=== PATIENT | male | born 1945 | race Caucasian/White ===

== ENCOUNTER 2018-04-05 10:58 | Emergency (ER) | payer BC, MEDICARE ==
--- NOTE | 2018-04-05 11:36 | ER Document Report ---
ED Fall - General Mode of Arrival: Ambulatory Information source: Patient TRAVEL OUTSIDE OF THE [place] IN LAST 30 DAYS: No <ESTELA DENNIS - Last Filed: 04/05/18 12:15> <FELISA BLANCHARD - Last Filed: 04/05/18 15:02> - General Chief Complaint: Fall Injury Stated Complaint: FALL Time Seen by Provider: 04/05/18 11:21 Notes: 72-year-old male who presents to the emergency department today with complaints of a fall that occurred this morning. Patient states it was dark outside as he was leaving for work, he tripped over some bricks in his driveway, and landed on concrete. Patient states he landed on his left side. Patient states he has left hip pain, pain in the posterior right thigh, and hematuria. Patient states he was able to get up and ambulate back inside with pain. Patient states he laid down for about an hour and when he woke up he urinated. Patient states this urine was all blood. Patient states his pain has steadily been increasing since the fall. Patient does take a baby aspirin a day. (ESTELA DENNIS) - Related data Allergies/Adverse Reactions: meperidine HCl [From Demerol] Allergy (Verified 04/05/18 11:11) Past Medical History - General Information source: Patient - Social History Smoking Status: Unknown if Ever Smoked Frequency of alcohol use: None Drug Abuse: None Lives with: Family Family History: CAD, DM Patient has suicidal ideation: No Patient has homicidal ideation: No - Past Medical History Cardiac Medical History: Reports: Hx Hypercholesterolemia, Hx Hypertension Renal/ Medical History: Denies: Hx Peritoneal Dialysis GI Medical History: Reports: Hx Gastroesophageal Reflux Disease Past Surgical History: Reports: Hx Abdominal Surgery - Hiatal hernia repair, Hx Appendectomy, Hx Cardiac Catheterization - 02/20/14, aortic valve, Hx Orthopedic Surgery - LEFT HIP REPLACE. - Immunizations Hx Diphtheria, Pertussis, Tetanus Vaccination: Yes <ESTELA DENNIS - Last Filed: 04/05/18 12:15> Review of Systems - Review of Systems Constitutional: No symptoms reported EENT: No symptoms reported Cardiovascular: No symptoms reported Respiratory: No symptoms reported Gastrointestinal: See HPI, Abdominal pain - left sided Genitourinary: See HPI, Flank pain - left, Hematuria Male Genitourinary: No symptoms reported Musculoskeletal: See HPI, Joint pain - left hip Skin: No symptoms reported Hematologic/Lymphatic: No symptoms reported Neurological/Psychological: No symptoms reported -: Yes All other systems reviewed and negative <ESTELA DENNIS - Last Filed: 04/05/18 12:15> Physical Exam <ESTELA DENNIS - Last Filed: 04/05/18 12:15> <FELISA BLANCHARD - Last Filed: 04/05/18 15:02> - Vital signs Vitals: Temp Pulse BP Pulse Ox 98.0 F 76 146/80 H 97 04/05/18 11:04 04/05/18 11:04 04/05/18 11:04 04/05/18 11:04 - Notes Notes: Physical Exam: General: Alert, appears uncomfortable. HEENT: Normocephalic. Atraumatic. PERRL. Extraocular movements intact. Oropharynx clear. Neck: Supple. Non-tender. Respiratory: No respiratory distress. Clear and equal breath sounds bilaterally. Cardiovascular: Regular rate and rhythm. Abdominal: Left lower quadrant tenderness with palpation. No distension. Normal Bowel Sounds. Back: Left flank tenderness with palpation. No deformity or step off. Extremities: Moves all four extremities. Upper extremities: Normal inspection. Normal ROM. Lower extremities: Some tenderness with palpation over the right posterior hamstring musculature region. Moderate tenderness with palpation of left hip. Neurological: Normal cognition. AAOx4. Normal speech. Psychological: Normal affect. Normal Mood. Skin: Warm. Dry. Normal color. (ESTELA DENNIS) Course - Laboratory Result Diagrams: 04/05/18 12:40 04/05/18 12:40 - Diagnostic Test Radiology reviewed: Image reviewed, Reports reviewed - CT scan is unremarkable. <FELISA BLANCHARD - Last Filed: 04/05/18 15:02> - Vital Signs Vital signs: Temp Pulse Resp BP Pulse Ox 98.0 F 76 146/80 H 97 04/05/18 11:04 04/05/18 11:04 04/05/18 11:04 04/05/18 11:04 - Laboratory Laboratory results interpreted by me: 04/05/18 11:33 Urine Protein 100 H Urine Blood LARGE H Discharge <ESTELA DENNIS - Last Filed: 04/05/18 12:15> <FELISA BLANCHARD - Last Filed: 04/05/18 15:02> - Discharge Clinical Impression: Contusion of left hip region Fall Qualifiers: Encounter type: initial encounter Qualified Code(s): W19.XXXA - Unspecified fall, initial encounter Contusion of flank and back Qualifiers: Encounter type: initial encounter Qualified Code(s): S30.1XXA - Contusion of abdominal wall, initial encounter Renal contusion Qualifiers: Encounter type: initial encounter Laterality: left Qualified Code(s): S37.012A - Minor contusion of left kidney, initial encounter Condition: Stable Disposition: HOME, SELF-CARE Additional Instructions: Contusion: Your injury has resulted in a contusion -- a crushing of the deep tissues. No injury to important structures was detected during the physician's exam. Contusions vary in the amount of pain they cause, and in the length of time required for healing. Typically, the area will become bruised, and will remain painful to touch for two or three weeks. However, most patients are back to working and playing within a few days. After the initial period of rest and cold-packs, your symptoms (together with the doctor's recommendations) will determine how rapidly you can get back to full activity. Usually this means "do what feels okay, but don't do things that hurt." If re-examination was recommended, it's important to follow up as instructed. Call the doctor or return any time if pain increases, if swelling becomes severe, if you develop numbness or weakness in an injured extremity, or if any other alarming symptoms occur. The x-ray does not show any problems with your left hip hardware. There are no signs of fractures in the surrounding bones. The CT scan does not show any abnormalities in your abdomen or pelvis. The blood in the urine suggest you had a contusion to your left kidney. The physical exam shows that you had a contusion to the left hip and left flank region. You should drink plenty of fluids for the next few days to keep your urine diluted. Follow-up with your doctor Sunday for recheck if not improving. RETURN TO THE EMERGENCY ROOM IF ANY NEW OR WORSENING SYMPTOMS. Prescriptions: Oxycodone HCl/Acetaminophen [Percocet 5-325 mg Tablet] 1 - 2 tab PO ASDIR PRN # 15 tablet PRN Reason: Referrals: NI GOMES MD [Primary Care Provider] - Follow up as needed Scribe Attestation: 04/05/18 13:05 I personally performed the services described in the documentation, reviewed and edited the documentation which was dictated to the scribe in my presence, and it accurately records my words and actions. (FELISA BLANCHARD) Scribe Documentation - Scribe Written by Artemioe:: Santy Zhu, 04/05/2018 1221 acting as scribe for :: Crystal <ESTELA DENNIS - Last Filed: 04/05/18 12:15>
[2018-04-05] MEDS ORDERED: ONDANSETRON HCL INJ/PF 4 MG/2 ML SDV IV ONE (11:48)
[2018-04-05] MEDS ORDERED: MORPHINE SULFATE 10 MG/ML INJ IV ONE (11:48)
--- NOTE | 2018-04-05 12:17 | RADIOLOGY REPORT (SQ) ---
EXAM DESCRIPTION: HIP LEFT AP/LATERAL COMPLETED DATE/TIME: 04/05/2018 12:05 pm REASON FOR STUDY: Fall, left hip pain, prosthetic hip COMPARISON: 11/09/2015. NUMBER OF VIEWS: Two views. TECHNIQUE: AP pelvis and additional frog-leg view of the left hip. LIMITATIONS: None. FINDINGS: MINERALIZATION: Normal. LEFT HIP: Stable prosthesis. No fracture or dislocation. No worrisome bone lesions. RIGHT HIP: No fracture or dislocation. Degenerative changes. No worrisome bone lesions. PUBIS AND ISCHIUM: No fracture. PELVIS: No fracture. SACRUM: No fracture or dislocation. No worrisome bone lesions. LOWER LUMBAR SPINE: No fracture or dislocation. No worrisome bone lesions. Degenerative disc disease . SOFT TISSUES: No findings. OTHER: No other significant finding. IMPRESSION: STABLE LEFT HIP PROSTHESIS. DEGENERATIVE CHANGES IN THE RIGHT HIP AND LOWER LUMBAR SPIN E. NO ACUTE FINDINGS. TECHNICAL DOCUMENTATION: JOB ID: [id number] [employer]- All Rights Reserved Reading location - IP/workstation name: [facility]
[2018-04-05 12:18] LABS: APPEARANCE,URINE CLOUDY; BILIRUBIN,URINE NEGATIVE (NEGATIVE); GLUCOSE, URINE NEGATIVE (NEGATIVE); KETONES,URINE NEGATIVE (NEGATIVE); LEUKOCYTE ESTERASE,URINE NEGATIVE (NEGATIVE); NITRITE,URINE NEGATIVE (NEGATIVE); PROTEIN,URINE 100 mg/dL (NEGATIVE); URINE SPECIFIC GRAVITY 1.016; UROBILINOGEN,URINE NEGATIVE mg/dL (<2.0)
[2018-04-05 12:19] LABS: COLOR,URINE BROWN
[2018-04-05 12:58] LABS: ABSOLUTE BASOPHILS # (AUTO) 0.1 10^3/uL (0.0-0.2); ABSOLUTE EOSINOPHILS # (AUTO) 0.2 10^3/uL (0.0-0.6); ABSOLUTE LYMPHOCYTES (AUTO) 1.7 10^3/uL (0.5-4.7); ABSOLUTE MONOCYTES (AUTO) 0.8 10^3/uL (0.1-1.4); ABSOLUTE NEUT (AUTO) 6.6 10^3/uL (1.7-8.2); BASOPHILS % (AUTO) 0.8 % (0-2); EOSINOPHILS % (AUTO) 2.4 % (0-6); HEMATOCRIT 40.5 % (37.9-51.0); HEMOGLOBIN 13.9 g/dL (13.5-17.0); LYMPHOCYTES % (AUTO) 18.4 % (13-45); MEAN CORPUSCULAR HEMOGLOBIN 30.7 pg (27.0-33.4); MEAN CORPUSCULAR HGB CONC 34.3 g/dL (32.0-36.0); MEAN CORPUSCULAR VOLUME 89 fl (80-97); MONOCYTES % (AUTO) 8.2 % (3-13); PLATELET COUNT 170 10^3/uL (150-450); RED BLOOD COUNT 4.53 10^6/uL (4.35-5.55); RED CELL DISTRIBUTION WIDTH 13.7 % (11.5-14.0); SEGMENTED NEUTROPHILS % (AUTO) 70.2 % (42-78); TOTAL CELLS COUNTED % (AUTO) 100 %; WHITE BLOOD COUNT 9.5 10^3/uL (4.0-10.5)
[2018-04-05 13:24] LABS: ALANINE AMINOTRANSFERASE 24 U/L (21-72); ALBUMIN 3.6 g/dL (3.5-5.0); ALKALINE PHOSPHATASE 75 U/L (38-126); ANION GAP 8 (5-19); ASPARTATE AMINO TRANSFERASE 27 U/L (17-59); BILIRUBIN,DIRECT 0.2 mg/dL (0.0-0.4); BILIRUBIN,TOTAL 1.2 mg/dL (0.2-1.3); BLOOD UREA NITROGEN 15 mg/dL (7-20); CALCIUM 9.1 mg/dL (8.4-10.2); CARBON DIOXIDE 30 mmol/L (22-30); CHLORIDE 106 mmol/L (98-107); CREATINE KINASE 56 U/L (55-170); GLUCOSE 91 mg/dL (75-110); POTASSIUM 4.3 mmol/L (3.6-5.0); SODIUM 143.9 mmol/L (137-145); TOTAL PROTEIN 6.5 g/dL (6.3-8.2)
--- NOTE | 2018-04-05 14:09 | RADIOLOGY REPORT (SQ) ---
EXAM DESCRIPTION: CT ABD/PELVIS WITH IV ONLY COMPLETED DATE/TIME: 04/05/2018 1:57 pm REASON FOR STUDY: Fall, L flank pain, hematuria COMPARISON: None. TECHNIQUE: CT scan of the abdomen and pelvis performed using helical scanning technique with dynamic intravenous contrast injection. No oral contrast. Images reviewed with lung, soft tissue, and bone windows. Reconstructed coronal and sagittal MPR images reviewed. Delayed images for evaluation of the urinary system also acquired. All images stored on PACS. All CT scanners at this facility use dose modulation, iterative reconstruction, and/or weight based d osing when appropriate to reduce radiation dose to as low as reasonably achievable (ALARA). [facility]: Dose Right [facility]: CareDose [facility]: Dose Right [facility]: Teradose 4D [facility]: [employer] CONTRAST TYPE AND DOSE: contrast/concentration: Isovue 350.00 mg/ml; Total Contrast Delivered: 100.0 ml; Total Saline Delivered: 72.0 ml RENAL FUNCTION: BUN 15, creatinine 1.03 RADIATION DOSE: CT Rad equipment meets quality standard of care and radiation dose reduction techniq ues were employed. CTDIvol: 10.9 - 15.1 mGy. DLP: 1545 mGy-cm.. LIMITATIONS: None. FINDINGS: LOWER CHEST: No significant findings. No nodules or infiltrates. LIVER: Normal size. No masses. No dilated ducts. SPLEEN: Normal size. No focal lesions. PANCREAS: No masses. No significant calcifications. No adjacent inflammation or peripancreatic fluid collections. Pancreatic duct not dilated. GALLBLADDER: No identified stones by CT criteria. No inflammatory changes to suggest cholecystitis. ADRENAL GLANDS: No significant masses or asymmetry. RIGHT KIDNEY AND URETER: No solid masses. No significant calcifications. No hydronephrosis or hyd roureter. LEFT KIDNEY AND URETER: No solid masses. No significant calcifications. No hydronephrosis or hydr oureter. AORTA AND VESSELS: No aneurysm. No dissection. Renal arteries, SMA, celiac without stenosis. RETROPERITONEUM: No retroperitoneal adenopathy, hemorrhage or masses. BOWEL AND PERITONEAL CAVITY: No masses or inflammatory changes. No free fluid or peritoneal masses. APPENDIX: Normal. PELVIS: No mass. No free fluid. Normal bladder. ABDOMINAL WALL: No masses. No hernias. BONES: There are postsurgical changes in the left hip. No acute fracture or dislocation. OTHER: No other significant finding. IMPRESSION: NO SIGNIFICANT OR ACUTE FINDING IN THE ABDOMEN OR PELVIS ON CT SCAN WITH IV CONTRAST. TECHNICAL DOCUMENTATION: JOB ID: [id number] Quality ID # [id number]: Final reports with documentation of one or more dose reduction techniques (e.g., Au tomated exposure control, adjustment of the mA and/or kV according to patient size, use of iterative reconstruction technique) 2010 [employer]- All Rights Reserved Reading location - IP/workstation name: [email or web address]
[2018-04-05] MEDS ORDERED: OXYCODONE-ACETAMINOPHEN 5-325 MG TABLET PO ONE (15:01)
[2018-04-05 15:19] VITALS: BP 131/82
== END 2018-04-05 15:23 | disposition home or self-care (01) ==
LOC: ER 10:58
DX: S70.02XA Contusion of left hip, initial encounter (principal); M25.552 Pain in left hip; M79.652 Pain in left thigh; R31.9 Hematuria, unspecified; W01.198A Fall on same level from slipping, tripping and stumbling with subsequent striking against other object, initial encounter; Y92.007 Garden or yard of unspecified non-institutional (private) residence as the place of occurrence of the external cause; Z79.82 Long term (current) use of aspirin; E78.00 Pure hypercholesterolemia, unspecified; I10 Essential (primary) hypertension; Z96.642 Presence of left artificial hip joint
CPT/HCPCS: 99285; 96374; 96375; 36415; 82550; 85025; 80053; 81001; 73502; 74177; J2270; J2405